=== PATIENT | female | born 1990 | race African-American/Black ===

== ENCOUNTER 2017-03-14 10:24 | Emergency (ER) | payer SELFPAY ==
[2017-03-14] MEDS ORDERED: Ketorolac Tromethamine 60 MG/2 ML VIAL ONE (10:40)
== END 2017-03-14 11:16 | disposition home or self-care (01) ==
LOC: ERS 10:24
DX: K08.89 Other specified disorders of teeth and supporting structures (principal); F17.210 Nicotine dependence, cigarettes, uncomplicated
CPT/HCPCS: 96372; J1885

== ENCOUNTER 2018-05-17 13:24 | Emergency (ER) | payer SELFPAY ==
[2018-05-17] MEDS ORDERED: Ketorolac Tromethamine 60 MG/2 ML VIAL ONE (15:44)
[2018-05-17] MEDS ORDERED: Cyclobenzaprine 10 MG TAB ONE (15:55)
== END 2018-05-17 16:05 | disposition home or self-care (01) ==
LOC: ERS 13:24
DX: S16.1XXA Strain of muscle, fascia and tendon at neck level, initial encounter (principal); Z71.6 Tobacco abuse counseling; F17.210 Nicotine dependence, cigarettes, uncomplicated; X50.9XXA Other and unspecified overexertion or strenuous movements or postures, initial encounter
CPT/HCPCS: 96372; 99406; J1885

== ENCOUNTER 2018-09-22 13:38 | Emergency (ER) | payer SELFPAY | END 2018-09-22 15:15 | disposition home or self-care (01) | LOC: ERS 13:38 | DX: J35.8 Other chronic diseases of tonsils and adenoids (principal); F17.210 Nicotine dependence, cigarettes, uncomplicated | CPT/HCPCS: 87081; 87430; 99283 ==

== ENCOUNTER 2018-10-26 19:47 | Emergency (ER) | payer SELFPAY ==
[2018-10-26 20:38] LABS: Bacteria/HPF None Seen HPF (None Seen); Bilirubin Negative (Negative); Blood, Urine Negative (Negative); Clarity Clear (Clear); Glucose, Urine (Dipstick) Normal (Negative); Leukocyte 25 Leu/uL (Negative); Nitrite Negative (Negative); Protein, Urine (Dipstick) 10 mg/dL (Neg-Trace); RBC/HPF 0-3 HPF (0-3); Urobilinogen Normal mg/dL (Less than 2); WBC/HPF 0-3 HPF (0-3)
[2018-10-26 20:40] LABS: #Eosinphils 0.2 thou/uL (0.0-0.7); #Lymphocytes 2.4 thou/uL (1.20-3.40); #Monocytes 0.8 thou/uL (0.11-0.59); #Neutrophils 5.1 thou/uL (1.40-6.50); %Basophils 0.4 % (0.0-1.0); %Eosinophils 2.9 % (0.0-10.0); %Lymphocytes 27.5 % (21.0-51.0); %Monocytes 9.5 % (0.0-10.0); %Neutrophils 59.7 % (42.0-75.0); Hemoglobin 10.4 g/dL (12.0-16.0); Mean Corpuscular HGB CONC 32.5 g/dL (32.0-36.0); Mean Corpuscular Hemoglobin 26.1 pg (27.0-31.0); Mean Corpuscular Volume 80.4 fL (78.0-98.0); Mean Platelet Volume 7.1 fL (7.4-10.4); Platelet Count 259 thou/uL (130-400); RBC Distribution Width 14.8 % (11.5-14.5); Red Blood Cell (RBC) Count 3.96 mill/uL (4.20-5.40); White Blood Cell (WBC) Count 8.6 thou/uL (4.8-10.8)
[2018-10-26 20:41] LABS: Pregnancy Test - Urine (BHCG) POSITIVE (Negative); Pregu Control Bar Appear? YES (CONTROL BAR); Specific Gravity 1.027 (1.002-1.036)
[2018-10-26 20:42] LABS: Pregu Control Background? CLEAR/WHITE (CLR/WHITE)
[2018-10-26 21:06] LABS: ALT (SGPT) 24 U/L (8-55); AST (SGOT) 14 U/L (5-34); Albumin 4.1 g/dL (3.5-5.0); Alkaline Phosphatase 61 U/L (40-150); Anion Gap 11 mmol/L (10-20); BUN (Urea Nitrogen) 11 mg/dL (7.0-18.7); Bilirubin, Total 0.2 mg/dL (0.2-1.2); Calc. Creatinine Clearance 0 mL/min (70-130); Carbon Dioxide 22 mmol/L (22-29); Chloride 104 mmol/L (98-107); Estimated GFR-MDRD Greater than 90; Globulin 3.3 g/dL (2.4-3.5); Glucose 75 mg/dL (70-105); Potassium 3.3 mmol/L (3.5-5.1); Protein, Total 7.4 g/dL (6.0-8.3); Sodium 134 mmol/L (136-145)
--- NOTE | 2018-10-26 23:00 | ULT ---
OB ULTRASOUND: HISTORY: Pelvic pain. Nausea, vomiting, and diarrhea. No vaginal bleeding. FINDINGS: A single live intrauterine gestation is seen, with measurements corresponding to an estimated gestati onal age of 7 weeks and an REGULO of 06/14/2019. The heart rate measures 121 beats per minute. C rown-rump length measures 0.79 cm, gestational sac diameter 2.19 cm, and yolk sac diameter 0.51 cm. Flow is demonstrated to both ovaries. The left ovary measures 4.1 x 2.1 x 3.3 cm, and the right ovar y measures 3.2 x 2.6 x 4.5 cm. There is a 2 cm septated cyst in the right ovary. A small amount of free fluid is seen adjacent to the right ovary. No subchorionic hemorrhage is seen. IMPRESSION: Single live intrauterine at 7 weeks' estimated gestational age with estimated date of delmaggy elary of 06/14/2019. POS: [facility]
== END 2018-10-26 23:54 | disposition home or self-care (01) ==
LOC: ERS 19:47
DX: O99.89 Other specified diseases and conditions complicating pregnancy, childbirth and the puerperium (principal); R42 Dizziness and giddiness; R10.9 Unspecified abdominal pain; Z87.891 Personal history of nicotine dependence; Z3A.01 Less than 8 weeks gestation of pregnancy
CPT/HCPCS: 36415; 76856; 80053; 81003; 81015; 81025; 84702; 85025; 86900; 86901; 93976; 96360

== ENCOUNTER 2018-11-05 10:58 | Emergency (ER) | payer MEDICAID ==
[2018-11-05] MEDS ORDERED: Metoclopramide HCl 10 MG/2 ML VIAL ONE (11:53)
[2018-11-05] MEDS ORDERED: Ondansetron PF 4 MG/2 ML Vial ONE (11:53)
[2018-11-05 12:28] LABS: ALT (SGPT) 22 U/L (8-55); AST (SGOT) 15 U/L (5-34); Albumin 4.2 g/dL (3.5-5.0); Alkaline Phosphatase 63 U/L (40-150); Anion Gap 14 mmol/L (10-20); BUN (Urea Nitrogen) 11 mg/dL (7.0-18.7); Bilirubin, Total 0.4 mg/dL (0.2-1.2); Calc. Creatinine Clearance 0 mL/min (70-130); Calcium 9.6 mg/dL (7.8-10.44); Carbon Dioxide 19 mmol/L (22-29); Chloride 103 mmol/L (98-107); Estimated GFR-MDRD Greater than 90; Globulin 4.2 g/dL (2.4-3.5); Glucose 84 mg/dL (70-105); Lipase 14 U/L (8-78); Potassium 3.6 mmol/L (3.5-5.1); Protein, Total 8.4 g/dL (6.0-8.3); Sodium 132 mmol/L (136-145)
== END 2018-11-05 15:28 | disposition home or self-care (01) ==
LOC: ERS 10:58
DX: O21.0 Mild hyperemesis gravidarum (principal); Z3A.10 10 weeks gestation of pregnancy; Z79.899 Other long term (current) drug therapy; Z87.891 Personal history of nicotine dependence
CPT/HCPCS: 36415; 80053; 83690; 96361; 96365; 96375; J2405; J2765

== ENCOUNTER 2019-02-01 10:15 | Outpatient (CLI) | payer OTHER ==
--- NOTE | 2019-02-01 12:31 | ULT ---
OB ULTRASOUND: INDICATIONS: Anatomy. FINDINGS: A single viable intrauterine . Gestational age by ultrasound is 21 weeks 2 days. BPD: 21 weeks 3 days HC: 21 weeks 2 days AC: 21 weeks 2 days FL: 20 weeks 6 days EFW: 399 g (21 weeks 2 days) HEART RATE: 133 PLACENTA: Posterior and low lying. AMNIOTIC FLUID: Adequate. PARRISH recorded at 18.42 cm. PRESENTATION: Transverse with head to maternal right. ANATOMY: Intracranial contents, four chamber heart, stomach, kidneys, cord insertion, bladder, spine, lips, nose, extremities and three vessel cord were all imaged. No abnormality identified. IMPRESSION: A 21 week 2 day gestation by ultrasound measurement. Placenta is posterior and low lying. Follow-up u ltrasound suggested. POS: [facility]
== END 2019-02-01 10:16 | disposition home or self-care (01) ==
LOC: BICULT 10:15
PROVIDERS: ATTEND Nurse Practitioner
DX: O09.92 Supervision of high risk pregnancy, unspecified, second trimester (principal); O44.42 Low lying placenta NOS or without hemorrhage, second trimester; Z3A.21 21 weeks gestation of pregnancy
CPT/HCPCS: 76805

== ENCOUNTER 2019-03-22 21:30 | Day surgery (SDC) | payer OTHER ==
[2019-03-22 21:56] VITALS: BMI 33.6
[2019-03-22] MEDS ORDERED: hydrALAZINE 20 MG/ML VIAL SLOW IVP PRN (22:39)
--- NOTE | 2019-03-22 22:41 | PDOC.LDHP ---
Labor and Delivery H&P Chief complaint: other (back pain, spotting) HPI: 29 y/o at 28w6d, patient of Dr. Chávez, presents with brown discharge on panty liner today and constant low back pain. Denies bright red vaginal bleeding, LOF, ctx, or other concerns. +FM. Has been taking Tylenol irregularly. Has Tylenol #3 for tooth issue but takes it sparingly. Reports placenta previa with follow up ultrasound scheduled for next week. ROS neg for HEENT, CV, pulm, GI, , neuro, psych, skin, musculoskeletal, or constitutional symptoms other than mentioned above. OB History Details: 2 prior term SVDs 1 SAB Current complications: other (previa) Past Medical History: None Current medications: pre-jomar vitamins Previous surgical history: none Allergies/Adverse Reactions: Allergies Allergy/AdvReac Type Severity Reaction Status Date / Time No Known Allergies Allergy Verified 03/22/19 21:57 Social history: none - Physical Exam Vital signs reviewed and normal: yes General: NAD, resting Lungs: nonlabored breathing Abdomen: gravid Extremeties: no edema FHT: category 1 (140s, mod variability, + 10x10 accels, no decels) Kincaid contractions every: none - OB Labs Blood type: B RH: positive - Assessment 29 y/o at 28w6d with no e/o active bleeding. Gentle speculum exam with brown discharge but no bleeding. Back pain musculoskeletal with reproduction of pain upon palpation of paraspinous muscles of low back. status reassuring with reactive NST. - Plan -: D/c home with precautions. Advised to keep follow up appointment on Wednesday. Comfort measures discussed.
== END 2019-03-23 | disposition home or self-care (01) ==
LOC: L&D/OP 21:30
PROVIDERS: ATTEND Family Medicine
DX: O26.853 Spotting complicating pregnancy, third trimester (principal); O99.89 Other specified diseases and conditions complicating pregnancy, childbirth and the puerperium; M54.5 Low back pain; O44.03 Complete placenta previa NOS or without hemorrhage, third trimester; Z3A.28 28 weeks gestation of pregnancy
CPT/HCPCS: 99283

== ENCOUNTER 2019-04-22 09:24 | Emergency (ER) | payer OTHER | END 2019-04-22 11:10 | disposition home or self-care (01) | LOC: ERS 09:24 | DX: O99.513 Diseases of the respiratory system complicating pregnancy, third trimester (principal); J45.909 Unspecified asthma, uncomplicated; Z87.891 Personal history of nicotine dependence; Z3A.33 33 weeks gestation of pregnancy | CPT/HCPCS: 94640; J7620 ==

== ENCOUNTER 2019-06-05 19:30 | Inpatient (IN) | payer OTHER ==
[2019-06-06] MEDS ORDERED: Lidocaine 1% (PF) 30 ML VIAL SC PRN (05:12)
[2019-06-06] MEDS ORDERED: Carboprost 250 MCG/ML AMP IM PRN (05:12)
[2019-06-06] MEDS ORDERED: Misoprostol 200 MCG TAB PR PRN (05:12)
[2019-06-06] MEDS ORDERED: HYDROcodone/Acetaminophen 5/325 mg Tablet PO PRN ×2 (05:12→17:13)
[2019-06-06] MEDS ORDERED: NS / Oxytocin 40 units/1000ml 1,000 ML IV PRN (05:12)
[2019-06-06] MEDS ORDERED: Promethazine HCl 25 MG/ML VIAL IM PRN ×4 (05:12→17:13)
[2019-06-06] MEDS ORDERED: Methylergonovine 0.2 MG/ML VIAL IM PRN (05:12)
[2019-06-06] MEDS ORDERED: NS w/ Oxytocin 10 units 500 ML IV SCH ×2 (05:12)
[2019-06-06] MEDS ORDERED: Ondansetron PF 4 MG/2 ML Vial IVP PRN ×4 (05:12→17:13)
[2019-06-06] MEDS ORDERED: Ibuprofen 800 MG TAB PO PRN (05:12)
[2019-06-06] MEDS ORDERED: Diphenoxylate HCl/Atropine Tablet PO PRN (05:12)
[2019-06-06] MEDS ORDERED: hydrALAZINE 20 MG/ML VIAL SLOW IVP PRN ×2 (05:12→17:13)
[2019-06-06 05:30] VITALS: BMI 35.9
[2019-06-06] MEDS: Lactated Ringer's 1,000 ML IV SCH ×2 (05:55→13:05)
[2019-06-06] MEDS ORDERED: Penicillin G Potassium 5 MILL.UNITS VIAL ONE (06:02)
[2019-06-06] MEDS: Misoprostol 100 MCG TAB PO SCH ×3 (06:07→14:11)
[2019-06-06 06:25] LABS: Mean Corpuscular HGB CONC 32.8 g/dL (32.0-36.0); Mean Corpuscular Hemoglobin 21.1 pg (27.0-31.0); Mean Corpuscular Volume 64.3 fL (78.0-98.0); RBC Distribution Width 18.4 % (11.5-14.5)
[2019-06-06 06:37] LABS: Mean Platelet Volume 5.2 fL (7.4-10.4); Platelet Count 262 thou/uL (130-400); White Blood Cell (WBC) Count 9.6 thou/uL (4.8-10.8)
[2019-06-06 06:40] LABS: HBSAg Index 0.14 S/CO (0-0.99); Hep B Surf Ag Non-Reactive S/CO (NonReactive); Syphilis Antibody Nonreactive (Nonreactive); Syphilis Antibody Index 0.06 S/CO (<1.00 Non-Reactive)
[2019-06-06] MEDS ORDERED: Penicillin G Potassium 5 MILL.UNITS in Sodium Chloride 0.9% 100 ML IVPB SCH (06:45)
[2019-06-06] MEDS: Butorphanol Tartrate 1 MG/ML VIAL SLOW IVP PRN ×2 (09:10→10:15)
[2019-06-06] MEDS ORDERED: Penicillin G 2.5 MILL.units 50 ML ONE ×2 (10:29→14:17)
[2019-06-06] MEDS: Penicillin G Potassium 2.5 MILL.UNITS in Sodium Chloride 0.9% 50 ML IVPB SCH ×2 (11:33→14:44)
[2019-06-06] MEDS ORDERED: Bupivacaine 0.25% HCL 30 ML VIAL ONE (12:22)
[2019-06-06] MEDS ORDERED: Lidocaine 2% MPF 10 ML AMP (For Epidural Use) ONE (12:22)
[2019-06-06] MEDS ORDERED: Fentanyl 4 mcg/Bup 0.1% Cadd 100 ML ONE (12:54)
[2019-06-06] MEDS ORDERED: Communication Order-Pharmacy FS SCH ×2 (13:45→14:00)
[2019-06-06] MEDS ORDERED: diphenhydrAMINE 50 MG/ML VIAL IVP PRN ×2 (13:45→13:46)
[2019-06-06] MEDS ORDERED: Naloxone HCl 0.4 mg/ml Vial IVP PRN ×4 (13:45→13:46)
[2019-06-06] MEDS ORDERED: Lactated Ringer's 500 ML IV PRN ×2 (13:45→13:46)
[2019-06-06] MEDS ORDERED: Acetaminophen 325 MG TAB PO PRN ×2 (13:45→13:46)
[2019-06-06] MEDS ORDERED: EPHEDRINE 25 MG/5 ML SYRINGE SLOW IVP PRN ×2 (13:45→13:46)
[2019-06-06] MEDS ORDERED: Fentanyl 4 mcg/Bupivacaine 0.1% Cassette 100 ML EPIDURAL SCH (14:00)
[2019-06-06] MEDS ORDERED: Milk Of Magnesia 30 ML UDCUP PO PRN (17:13)
[2019-06-06] MEDS ORDERED: Bisacodyl 10 MG SUPP PR PRN (17:13)
[2019-06-06] MEDS ORDERED: diphenhydrAMINE 25 MG CAP PO PRN (17:13)
[2019-06-06] MEDS ORDERED: Lanolin Ointment 7 GM TUBE TOP PRN (17:13)
[2019-06-06] MEDS ORDERED: NS / Oxytocin 40 units/1000ml 1,000 ML IV SCH (17:15)
[2019-06-06] MEDS: Docusate Calcium (SURFAK) 240 MG CAP PO SCH (20:54)
[2019-06-06] MEDS: Ibuprofen 800 MG TAB PO SCH (21:49)
[2019-06-07] MEDS: Ibuprofen 800 MG TAB PO SCH ×3 (05:19→21:23)
[2019-06-07 08:22] LABS: Hemoglobin 7.1 g/dL (12.0-16.0); Mean Corpuscular HGB CONC 31.8 g/dL (32.0-36.0); Mean Corpuscular Hemoglobin 20.8 pg (27.0-31.0); Mean Corpuscular Volume 65.5 fL (78.0-98.0); Mean Platelet Volume 12.1 fL (7.4-10.4); Platelet Count 213 thou/uL (130-400); RBC Distribution Width 18.5 % (11.5-14.5); Red Blood Cell (RBC) Count 3.42 mill/uL (4.20-5.40); White Blood Cell (WBC) Count 10.4 thou/uL (4.8-10.8)
[2019-06-07] MEDS: Ferrous Sulfate 325 MG TAB PO SCH ×2 (08:30→18:15)
[2019-06-07] MEDS: Prenatal Vitamin 1 TAB PO SCH (08:30)
[2019-06-07] MEDS: Docusate Calcium (SURFAK) 240 MG CAP PO SCH ×2 (08:30→21:23)
[2019-06-07] MEDS ORDERED: Adacel (T-DAP) 0.5 ML SYRINGE IM ONE (09:00)
[2019-06-07] MEDS: HYDROcodone/Acetaminophen 5/325 mg Tablet PO PRN ×2 (10:27→16:32)
[2019-06-08] MEDS: HYDROcodone/Acetaminophen 5/325 mg Tablet PO PRN ×4 (00:46→16:40)
[2019-06-08 03:01] VITALS: TEMP 98
[2019-06-08] MEDS: Ibuprofen 800 MG TAB PO SCH ×2 (05:22→14:35)
[2019-06-08] MEDS: Docusate Calcium (SURFAK) 240 MG CAP PO SCH (08:21)
[2019-06-08] MEDS: Ferrous Sulfate 325 MG TAB PO SCH (08:21)
[2019-06-08] MEDS: Prenatal Vitamin 1 TAB PO SCH (08:21)
[2019-06-08 08:43] VITALS: BP 124/74
== END 2019-06-08 17:20 | disposition home or self-care (01) | DRG 807 ==
LOC: L&D 06-06 04:42 → 3SW 06-07 10:08
PROVIDERS: ADMIT Family Medicine; ATTEND Family Medicine
PROC: 10E0XZZ Delivery of Products of Conception, External Approach (ICD-10-PCS; principal; 2019-06-06)
PROC: 10907ZC Drainage of Amniotic Fluid, Therapeutic from Products of Conception, Via Natural or Artificial Opening (ICD-10-PCS; 2019-06-06)
DX: O99.824 Streptococcus B carrier state complicating childbirth (principal); Z37.0 Single live birth; Z3A.39 39 weeks gestation of pregnancy
CPT/HCPCS: 36416; 85027; 86780; 86850; 86900; 86901; 87340; J0595; J2001; J2405; J2540; J2590; J3490; S0020

== ENCOUNTER 2020-07-09 08:39 | Emergency (ER) | payer OTHER ==
[2020-07-09] MEDS ORDERED: HYDROcodone/Acetaminophen 5/325 mg Tablet ONE (08:55)
== END 2020-07-09 09:55 | disposition home or self-care (01) ==
LOC: ERS 08:39
DX: S16.1XXA Strain of muscle, fascia and tendon at neck level, initial encounter (principal); F17.210 Nicotine dependence, cigarettes, uncomplicated; V43.52XA Car driver injured in collision with other type car in traffic accident, initial encounter
CPT/HCPCS: 70450; 71045; 72125